=== PATIENT | female | born 1960 | race Caucasian/White ===

== ENCOUNTER → 2017-06-29 | Outpatient (CLI) | payer OTHER | LOC: BMCIMAGING 12:52 | PROVIDERS: ATTEND Internal Medicine | DX: Z12.31 Encounter for screening mammogram for malignant neoplasm of breast (principal) | CPT/HCPCS: G0202 ==

== ENCOUNTER → 2018-07-16 | Outpatient (CLI) | payer OTHER | LOC: BMCIMAGING 12:01 | PROVIDERS: ATTEND Internal Medicine | DX: Z12.31 Encounter for screening mammogram for malignant neoplasm of breast (principal) ==

== ENCOUNTER → 2018-10-18 | Outpatient (CLI) | payer OTHER | LOC: FIMAGING 10:04 | PROVIDERS: ATTEND Internal Medicine | DX: Z13.820 Encounter for screening for osteoporosis (principal); M81.0 Age-related osteoporosis without current pathological fracture; E03.9 Hypothyroidism, unspecified; Z79.899 Other long term (current) drug therapy ==

== ENCOUNTER 2018-12-13 07:53 | Emergency (ER) | payer OTHER ==
[2018-12-13 08:30] LABS: PLATELET COUNT 323 10^3/uL (150-400)
[2018-12-13] MEDS ORDERED: ONDANSETRON 4 MG/2 ML VIAL IVP ONE (08:38)
[2018-12-13] MEDS ORDERED: MECLIZINE HCL 25 MG TAB PO ONE (08:38)
--- NOTE | 2018-12-13 08:45 | EDPHY ---
H & P Stated Complaint: vertigo, nausea, dizziness Time Seen by Provider: 12/13/18 08:06 HPI/ROS: CHIEF COMPLAINT: Vertigo HISTORY OF PRESENT ILLNESS: The patient presents to the ED with an acute exacerbation of vertigo. The patient has been struggling with symptoms consistent with BPV for the past several days. She saw her ENT provider who recommended Alejandro type maneuvers at home. The patient has been performing this at home however had an acute exacerbation of her symptoms today. She did take Dramamine prior to arrival as well as Pepto-Bismol for nausea. The patient denies any headache or focal neurologic symptoms. She denies any infectious symptoms. She has no acute complaints. REVIEW OF SYSTEMS: A comprehensive 10 point review of systems is otherwise negative aside from elements mentioned in the history of present illness. Source: Patient Exam Limitations: No limitations - Personal History Current Tetanus/Diphtheria Vaccine: Unsure Current Tetanus Diphtheria and Acellular Pertussis (TDAP): Unsure - Medical/Surgical History Hx Asthma: No Hx Chronic Respiratory Disease: No Hx Diabetes: No Hx Cardiac Disease: No Hx Renal Disease: No Hx Cirrhosis: No Hx Alcoholism: No Hx HIV/AIDS: No Hx Splenectomy or Spleen Trauma: No Other PMH: thyroid - Social History Smoking Status: Former smoker Alcohol Use: None Drug Use: None - Physical Exam Exam: General Appearance: Alert, no distress Eyes: Pupils equal and round no pallor or injection ENT, Mouth: Mucous membranes moist Respiratory: There are no retractions, lungs are clear to auscultation Cardiovascular: Regular rate and rhythm Gastrointestinal: Abdomen is soft and nontender, no masses, bowel sounds normal Neurological: A&O, normal motor function, normal sensory exam, normal cranial nerves Skin: Warm and dry, no rashes Musculoskeletal: Neck is supple nontender Extremities: symmetrical, full range of motion Constitutional: Initial Vital Signs Temperature (C) 36.7 C 12/13/18 07:57 Heart Rate 111 H 12/13/18 07:57 Respiratory Rate 18 12/13/18 07:57 Blood Pressure 143/82 H 12/13/18 07:57 O2 Sat (%) 95 12/13/18 07:57 O2 Delivery Mode Room Air Allergies/Adverse Reactions: No Known Allergies Allergy (Unverified 06/25/14 17:52) Home Medications: Medication Instructions Recorded Levothyroxine [Synthroid] 125 mcg PO DAILY@1000 10/30/11 Progesterone,Micronized 25 gm MC 10/30/11 [Progesterone] Estradiol 06/25/14 LORazepam [Ativan (*)] 0.5 - 1 mg PO Q6-8PRN PRN #14 tab 06/25/14 Ondansetron Odt [Zofran Odt] 4 mg PO Q4PRN PRN #20 tab 12/13/18 Medical Decision Making - Diagnostics EKG Interpretation: EKG: Complete interpretation has been separately recorded in the [facility] archive. Summary impression: Sinus rhythm, rate 87, no ischemic changes noted ED Course/Re-evaluation: The patient presents to the ED with symptoms consistent with benign positional vertigo. The patient received Zofran and meclizine. The patient was observed in the emergency department for 2 hr. Reassessment at 10:30 a.m.: Patient is now ambulatory without vertiginous symptoms. She is requesting a prescription for Zofran. She does have meclizine available at home. Differential Diagnosis: Differential diagnosis considered includes central vertigo, peripheral vertigo, labyrinthitis - Data Points Laboratory Results: Laboratory Results 12/13/18 08:15 12/13/18 08:15 12/13/18 12/13/18 08:15 08:15 WBC 12.48 10^3/uL H 10^3/uL (3.80-9.50) RBC 5.44 10^6/uL H 10^6/uL (4.18-5.33) Hgb 16.7 g/dL H g/dL (12.6-16.3) Hct 47.7 % H % (38.0-47.0) MCV 87.7 fL fL (81.5-99.8) MCH 30.7 pg pg (27.9-34.1) MCHC 35.0 g/dL g/dL (32.4-36.7) RDW 12.7 % % (11.5-15.2) Plt Count 323 10^3/uL 10^3/uL (150-400) MPV 9.5 fL fL (8.7-11.7) Neut % (Auto) 87.8 % H % (39.3-74.2) Lymph % (Auto) 8.2 % L % (15.0-45.0) [place] % (Auto) 3.5 % L % (4.5-13.0) Eos % (Auto) 0.1 % L % (0.6-7.6) Baso % (Auto) 0.2 % L % (0.3-1.7) Nucleat RBC Rel Count 0.0 % % (0.0-0.2) Absolute Neuts (auto) 10.96 10^3/uL H 10^3/uL (1.70-6.50) Absolute Lymphs (auto) 1.02 10^3/uL 10^3/uL (1.00-3.00) Absolute Monos (auto) 0.44 10^3/uL 10^3/uL (0.30-0.80) Absolute Eos (auto) 0.01 10^3/uL L 10^3/uL (0.03-0.40) Absolute Basos (auto) 0.02 10^3/uL 10^3/uL (0.02-0.10) Absolute Nucleated RBC 0.00 10^3/uL 10^3/uL (0-0.01) Immature Gran % 0.2 % % (0.0-1.1) Immature Gran # 0.03 10^3/uL 10^3/uL (0.00-0.10) Sodium 141 mEq/L mEq/L (135-145) Potassium 3.9 mEq/L mEq/L (3.5-5.2) Chloride 108 mEq/L mEq/L (97-110) Carbon Dioxide 23 mEq/l mEq/l (22-31) Anion Gap 10 mEq/L mEq/L (6-14) BUN 18 mg/dL mg/dL (7-23) Creatinine 0.6 mg/dL mg/dL (0.6-1.0) Estimated GFR > 60 Glucose 107 mg/dL H mg/dL (70-100) Calcium 10.5 mg/dL H mg/dL (8.5-10.4) Medications Given: Discontinued Medications Meclizine HCl (Meclizine Hcl) 25 mg PO EDNOW ONE Stop: 12/13/18 08:39 Last Admin: 12/13/18 08:50 Dose: 25 mg Ondansetron HCl (Zofran) 4 mg IVP EDNOW ONE Stop: 12/13/18 08:39 Last Admin: 12/13/18 08:49 Dose: 4 mg Departure - Departure Disposition: Home, Routine, Self-Care Clinical Impression: Vertigo Condition: Good Instructions: Vertigo (ED) Referrals: Estelle Mike MD [Primary Care Provider] - As per Instructions Prescriptions: Ondansetron Odt [Zofran Odt] 4 mg PO Q4PRN PRN #20 tab PRN Reason: For Nausea
--- NOTE | 2018-12-13 08:48 | CPEKG ---
Test Reason : OPEN Blood Pressure : / mmHG Vent. Rate : 087 BPM Atrial Rate : 089 BPM P-R Int : 141 ms QRS Dur : 081 ms QT Int : 389 ms P-R-T Axes : 077 078 -01 degrees QTc Int : 468 ms Sinus rhythm Confirmed by Jose Miguel Engle ([id number]) on 12/13/2018 8:48:18 AM Referred By: Jose Miguel Engle Confirmed By:Jose Miguel Engle
[2018-12-13 10:57] VITALS: BP 127/86
== END 2018-12-13 11:03 | disposition home or self-care (01) ==
DX: R42 Dizziness and giddiness (principal)
CPT/HCPCS: 96374; J2405